=== PATIENT | female | born 1985 | race Hispanic/Latino ===

== ENCOUNTER 2023-11-20 16:56 | Emergency (ER) | payer BC ==
[~2023-11-20] VITALS: Ht 154.9 cm; Wt 73.0 kg
[2023-11-20 17:30] LABS: HEMATOCRIT 37.8 % (36-48); MEAN CORPUSCULAR HEMOGLOBIN 31.8 pg (27.0-33.0); MEAN CORPUSCULAR HGB CONC 35.2 g/dL (32.0-36.0); MEAN CORPUSCULAR VOLUME 90.4 fL (79-99); RED BLOOD CELL COUNT(AUTO) 4.18 MIL/uL (4.00-5.50); RED CELL DISTRIBUTION WIDTH 12.6 % (11.0-15.5); WHITE BLOOD COUNT (AUTO) 6.2 K/uL (4.8-10.8)
[2023-11-20] MEDS: DiphenhydrAMINE HCL 50 MG/ML VIAL IV ONE (17:39)
[2023-11-20] MEDS: 0.9%NACL 1000ML 1,000 ML IV ONE (17:39)
[2023-11-20 17:40] LABS: CREATININE 0.7 mg/dL (0.5-1.0); POTASSIUM 3.3 mmol/L (3.5-5.1)
[2023-11-20] MEDS: KETOROLAC 15MG/ML VIAL (15MG/ML) IV ONE (17:40)
[2023-11-20] MEDS ORDERED: IOHEXOL-350 75 ML VIAL IV ONE (18:01)
[2023-11-20 18:15] LABS: APPEARANCE,URINE CLOUDY (CLEAR); BILIRUBIN,URINE NEGATIVE (NEGATIVE); COLOR,URINE LIGHT-YELLOW (YELLOW); GLUCOSE, URINE (UA) NEGATIVE (NEGATIVE); KETONES,URINE NEGATIVE (NEGATIVE); LEUKOCYTE ESTERASE ,URINE 250 Leu/uL (NEGATIVE); NITRATE,URINE NEGATIVE (NEGATIVE); OCCULT BLOOD,URINE LARGE (NEGATIVE); PROTEIN,URINE NEGATIVE (NEGATIVE); UROBILINOGEN,URINE 0.2 mg/dL (0.2-1.0)
[2023-11-20 18:17] LABS: ADD UA MICROSCOPIC YES
[2023-11-20 18:21] LABS: MUCUS,URINE RARE LPF (None Seen); SQUAMOUS EPITHELIAL CELL,UR MOD /HPF (0-2)
[2023-11-20 18:33] VITALS: BP 123/80; PULSE 83; RESP 16; O2SAT 100
[2023-11-20] MEDS ORDERED: DIPH-1242 PO (18:51)
[2023-11-20] MEDS ORDERED: FIORIT PO (18:51)
== END 2023-11-20 21:00 | disposition home or self-care (01) ==
LOC: EDH 16:56
DX: I63.9 Cerebral infarction, unspecified (principal); G43.909 Migraine, unspecified, not intractable, without status migrainosus; F43.0 Acute stress reaction; F43.20 Adjustment disorder, unspecified; Z79.899 Other long term (current) drug therapy; Z90.49 Acquired absence of other specified parts of digestive tract; Z98.51 Tubal ligation status; Z98.890 Other specified postprocedural states
CPT/HCPCS: 99285; 70450; 96374; 96361; 96375; 80048; 85027; 87086; 81001; 36415; 70496; 70498; J1200; J7030; J1885; Q9967